=== PATIENT | male | born 1970 | race Caucasian/White ===

== ENCOUNTER 2022-03-08 03:12 | Emergency (ER) | payer MEDICAID ==
[~2022-03-08] VITALS: Ht 180.3 cm; Wt 82.0 kg
[2022-03-08] MEDS ORDERED: LIDOCAINE 5% PATCH TOP SCH (04:15)
[2022-03-08] MEDS ORDERED: METHOCARBAMOL 500MG TABLET PO ONE (04:15)
[2022-03-08 04:44] VITALS: BP 145/86
[2022-03-08] MEDS ORDERED: METH-773 MT (05:28)
[2022-03-08] MEDS ORDERED: LIDO1ADH5 TP (05:28)
== END 2022-03-08 06:41 | disposition home or self-care (01) ==
LOC: ER 03:12
DX: R07.81 Pleurodynia (principal); I10 Essential (primary) hypertension; Z98.890 Other specified postprocedural states
CPT/HCPCS: 71045; 99283